=== PATIENT | female | born 1965 | race Caucasian/White ===

== ENCOUNTER 2017-09-27 22:10 | Emergency (ER) | payer SELFPAY ==
[~2017-09-27] VITALS: Ht 160 cm; Wt 52.6 kg
[2017-09-28] MEDS ORDERED: Cephalexin500 MG PO (01:44)
== END 2017-09-28 01:53 | disposition home or self-care (01) ==
LOC: ER 22:10
DX: L01.00 Impetigo, unspecified (principal); Z88.5 Allergy status to narcotic agent; F17.200 Nicotine dependence, unspecified, uncomplicated
CPT/HCPCS: 99283